=== PATIENT | male | born 1980 | race Caucasian/White ===

== ENCOUNTER 2016-10-26 11:00 | Emergency (ER) | payer OTHER ==
[~2016-10-26] VITALS: Ht 195.6 cm; Wt 95.2 kg
[~2016-10-26 11:00] MED LIST: IPRAT-ALBUT 0.5-3 ML INH; MONTELUKAST SOD10 MG PO; OMEPRAZOLE20 MG PO
[2016-10-26] MEDS ORDERED: NORCO 5-325 TA1 EACH PO (13:09)
== END 2016-10-26 11:21 | disposition home or self-care (01) ==
LOC: ED 11:00
DX: Z00.8 Encounter for other general examination (principal)

== ENCOUNTER 2016-10-26 12:06 | Emergency (ER) | payer OTHER ==
[~2016-10-26] VITALS: Ht 195.6 cm; Wt 95.2 kg
[2016-10-26] MEDS ORDERED: NORCO 5-325 TA1 EACH PO (13:09)
== END 2016-10-26 13:28 | disposition home or self-care (01) ==
LOC: ED 12:06
PROC: 0HQNXZZ Repair Left Foot Skin, External Approach (ICD-10-PCS; principal; 2016-10-26)
DX: S97.82XA Crushing injury of left foot, initial encounter (principal); S91.312A Laceration without foreign body, left foot, initial encounter; W20.8XXA Other cause of strike by thrown, projected or falling object, initial encounter; Y99.0 Civilian activity done for income or pay
CPT/HCPCS: 12001; 73630; 99283

== ENCOUNTER 2020-05-29 14:28 | Emergency (ER) | payer OTHER ==
[~2020-05-29] VITALS: Ht 195.6 cm; Wt 95.2 kg
[~2020-05-29 14:28] MED LIST changes: +NORCO 5-325 TA1 EACH PO
[2020-05-29] MEDS ORDERED: METOPROLOL SUCC25 MG PO (15:08)
[2020-05-29] MEDS ORDERED: OMEPRAZOLE20 MG PO (15:08)
[2020-05-29] MEDS ORDERED: HYDROCODON-ACE1 EA10 PO (16:33)
== END 2020-05-29 16:37 | disposition home or self-care (01) ==
LOC: ED 14:28
DX: S20.212A Contusion of left front wall of thorax, initial encounter (principal); S30.0XXA Contusion of lower back and pelvis, initial encounter; V80.010A Animal-rider injured by fall from or being thrown from horse in noncollision accident, initial encounter; J45.909 Unspecified asthma, uncomplicated; Z79.899 Other long term (current) drug therapy
CPT/HCPCS: 71101; 73502; 80053; 85025; 96374; 96375; 96376; 99283-25; J1170; J1885

== ENCOUNTER 2021-09-08 10:29 | Emergency (ER) | payer OTHER ==
[~2021-09-08] VITALS: Ht 195.6 cm; Wt 101.9 kg
--- NOTE | ~2021-09-08 | EKG ---
[facility] [address] [place], [place] [address] Draft EKG completed, results pending confirmation PATIENT NAME: OLIVASSHANIQUA FLAHERTY Electrocardiogram DATE OF : 80 PHYSICIAN: PRELIMINARY REPORT #: [id number] REPORT IS CONFIDENTIAL AND NOT TO BE RELEASED WITHOUT AUTHORIZATION
[~2021-09-08 10:29] MED LIST changes: +HYDROCODON-ACE1 EA10 PO
[2021-09-08] MEDS ORDERED: METOPROLOL SUCC25 MG PO (10:49)
[2021-09-08] MEDS ORDERED: PREDNISONE20 MG PO (12:41)
== END 2021-09-08 13:38 | disposition home or self-care (01) ==
LOC: ED 10:29
DX: J45.901 Unspecified asthma with (acute) exacerbation (principal); Z79.899 Other long term (current) drug therapy
CPT/HCPCS: 36415; 71045; 80048; 83880; 85025; 85379; 93005; 93010; 94640; 96374; 99285-25; J2930

== ENCOUNTER 2023-09-25 00:53 | Emergency (ER) | payer OTHER ==
[~2023-09-25] VITALS: Ht 195.6 cm; Wt 102.1 kg
[~2023-09-25 00:53] MED LIST changes: +METOPROLOL SUCC25 MG PO; +PREDNISONE20 MG PO
[2023-09-25] MEDS ORDERED: ALBUTEROL/IPRATROPIUM 3 ML NEB INH ONE (01:00)
[2023-09-25] MEDS ORDERED: VENTOLIN HFA18 GM INH (01:06)
[2023-09-25] MEDS ORDERED: IPRAT-ALBUT 0.5-3 ML INH (01:06)
[2023-09-25 01:30] LABS: BASOPHILS 1.2 % (0-2); HEMATOCRIT 41.1 % (35.0-50.0); LYMPHOCYTES 34.7 % (24-44); MCH 29.8 (27-36); MCV 87.7 fl (81-99); MONOCYTES 10.2 % (0-12); NEUTROPHILS 44.9 % (39-80); PLATELET COUNT 217 K/uL (140-440); RBC 4.69 M/ul (4.3-5.7)
[2023-09-25] MEDS ORDERED: methylPREDNISolone SOD SUCC 125 MG/2 ML VIAL IV ONE (01:30)
[2023-09-25] MEDS ORDERED: FLUTICASONE PRO12 GM INH (01:37)
[2023-09-25 01:51] LABS: ALBUMIN 3.6 g/dL (3.4-5.0); ALBUMIN/GLOBULIN RATIO 1.2 (1.1-2.4); ANION GAP 13.6 (7-21); BILIRUBIN, TOTAL 0.3 ng/dL (0.2-1.0); BUN/CREATININE RATIO 16.12 (6.0-28.6); CALCIUM 8.5 mg/dL (8.5-10.1); CREATININE, SERUM 0.93 mg/dL (0.70-1.30); POTASSIUM 3.6 mmol/L (3.5-5.1); PROTEIN, TOTAL 6.6 g/dL (6.4-8.2)
[2023-09-25 02:27] VITALS: BP 121/84
--- NOTE | 2023-09-25 12:58 | EKG ---
[facility] [address] [facility] [place] [address] Signed Normal sinus rhythm Normal ECG When compared with ECG of 08-SEP-2021 11:07, No significant change was found Confirmed by cT Alonso ([id number]) on 09/25/2023 12:58:27 PM Electronically Signed By: TC ALONSO MD 09/25/23 1258 PATIENT NAME: SHANIQUA OLIVAS Electrocardiogram DATE OF : 80 PHYSICIAN: TC ALONSO MD REPORT #: [id number] REPORT IS CONFIDENTIAL AND NOT TO BE RELEASED WITHOUT AUTHORIZATION
== END 2023-09-25 02:28 | disposition home or self-care (01) ==
LOC: ED 00:53
PROVIDERS: Internal Medicine
DX: J45.901 Unspecified asthma with (acute) exacerbation (principal); Z79.899 Other long term (current) drug therapy
CPT/HCPCS: 36415; 71045; 80053; 83735; 83880; 85025; 93005; 93010; 94640; 96374; 99285-25; J2919

== ENCOUNTER 2024-06-17 08:04 | Observation (INO) | payer OTHER ==
[~2024-06-17] VITALS: Ht 195.6 cm; Wt 102.3 kg
[~2024-06-17 08:04] MED LIST changes: +FLUTICASONE PRO12 GM INH; +VENTOLIN HFA18 GM INH
[2024-06-17 08:30] LABS: BASOPHILS 0.8 % (0-2); EOSINOPHILS 2.7 % (0-6); HEMATOCRIT 46.2 % (35.0-50.0); HEMOGLOBIN 15.8 g/dL (12.0-18.0); LYMPHOCYTES 42.6 % (24-44); MCH 29.2 (27-36); MCHC 34.3 g/dl (30-36); MCV 85.1 fl (81-99); MONOCYTES 6.7 % (0-12); NEUTROPHILS 47.2 % (39-80); PLATELET COUNT 309 K/uL (140-440); RBC 5.43 M/ul (4.3-5.7); RDW 13.9 (10.5-15.0)
[2024-06-17 08:41] LABS: ALBUMIN/GLOBULIN RATIO 1.14 (1.1-2.4); ANION GAP 9.8 (7-21); BILIRUBIN, TOTAL 0.5 mg/dL (0.2-1.0); BUN/CREATININE RATIO 12.82 (6.0-28.6); CALCIUM 8.3 mg/dL (8.5-10.1); CREATININE, SERUM 1.17 mg/dL (0.70-1.30); MAGNESIUM 2.1 mg/dL (1.8-2.4); POTASSIUM 3.8 mmol/L (3.5-5.1); PROTEIN, TOTAL 7.5 g/dL (6.4-8.2)
[2024-06-17] MEDS ORDERED: ondansetron HCL 4 MG/2 ML VIAL IV ONE ×2 (08:45→10:00)
[2024-06-17] MEDS ORDERED: HYDROmorphone HCL 1 MG/ML SYR IV ONE ×2 (08:45→10:00)
[2024-06-17] MEDS ORDERED: fentaNYL citrate 100 MCG/2 ML VIAL IV PRN ×2 (08:45→10:30)
--- NOTE | 2024-06-17 11:44 | EKG ---
[facility] [address] [facility] [place] [address] Signed Normal sinus rhythm Normal ECG When compared with ECG of 25-SEP-2023 01:17, No significant change was found Confirmed by Loc Berry DO ([id number]) on 06/17/2024 11:44:38 AM Electronically Signed By: LOC BERRY DO 06/17/24 1144 PATIENT NAME: SHANIQUA OLIVAS RENETTA Electrocardiogram DATE OF : 80 PHYSICIAN: LOC BERRY DO REPORT #: [id number] REPORT IS CONFIDENTIAL AND NOT TO BE RELEASED WITHOUT AUTHORIZATION
[2024-06-17] MEDS ORDERED: ondansetron HCL 4 MG/2 ML VIAL IV PRN (11:45)
[2024-06-17] MEDS ORDERED: ACETAMINOPHEN 325 MG TAB PO PRN (11:45)
[2024-06-17] MEDS ORDERED: LACTATED RINGER'S 1,000 ML IV SCH (11:45)
[2024-06-17] MEDS ORDERED: PHARMACY RENAL DOSE ADJUSTMENT 1 DOSE MISC PO SCH (12:00)
[2024-06-17] MEDS ORDERED: HYDROmorphone HCL 1 MG/ML SYR IV PRN (12:45)
[2024-06-17] MEDS ORDERED: MONTELUKAST SOD10 MG PO (13:13)
--- NOTE | 2024-06-17 13:14 | NUR ---
UR CLINICAL REVIEW: [facility] REVIEW MEET OBS FOR [facility] WITH NEED TO MONITOR [facility] 06/17/24 @ 1142 ORDER MATCHES REG NO AUTH REQUIRED PER [facility] GUIDELINES. RECORD FAXED PER [facility] REQUEST ANTICIPATE DC IN 24 HRS PENDING WORK UP 06/18/24
[2024-06-17 13:18] VITALS: BP 120/80
--- NOTE | 2024-06-17 13:41 | NUR ---
Patient to the medical floor. Patient alert and oriented x3, no acute distress. Patient has a sling to right shoulder in place, cms intact to RUE. Patient reports 3/10 right arm pain. Patient's vital signs are stable. Patient able to stand and transfer to unit bed, pt denies feeling dizzy with movement. Patient's at bedside. Oriented patient to room and call light. US to room for study at this time.
[2024-06-17] MEDS ORDERED: ASMANEX220 MC1 INH (14:45)
[2024-06-17] MEDS ORDERED: OMEPRAZOLE20 MG PO (14:45)
--- NOTE | 2024-06-17 14:55 | NUR ---
PATIENT GIVEN 1MG OF IV DILAUDID FOR 8/10 RIGHT SHOULDER PAIN. PATIENT ALSO GIVEN 650MG OF PO TYLENOL. NO OTHER NEEDS AT THIS TIME.
[2024-06-17] MEDS ORDERED: DESONIDE15 GM TOP (15:42)
[2024-06-17] MEDS ORDERED: TERBINAFINE15 G1 TOP (15:43)
[2024-06-17] MEDS ORDERED: FLUTICASONE PRO16 GM NAS (15:44)
--- NOTE | 2024-06-17 15:44 | NUR ---
MED REC COMPLETE
--- NOTE | 2024-06-17 16:17 | NUR ---
Patient in bed resting, eyes closed, respirations even/non labored. Call light within reach.
--- NOTE | 2024-06-17 16:42 | NUR ---
Patient in bed resting, easily wakes to verbal stimuli. Sling intact, pt tolerating well. Patient reports tolerable pain at this time. IV patent. Family at bedside. Personal supplies and call light within reach.
--- NOTE | 2024-06-17 17:49 | NUR ---
Patient found vomiting in bed. Patient reports he ate fries. Zofran 4mg iv admin at this time. Patient reports he is still hungry and is going to continue to try to eat. This RN attempted to encourage him to take a break from eating, pt reports he will "go slow". and other family members at bedside.
[2024-06-17 18:35] VITALS: BP 124/72
--- NOTE | 2024-06-17 19:32 | NUR ---
RECEIVED REPORT FROM SHERLYN MORIN. PT AWAKE, DENIES NEEDS OR CONCERNS AT THIS TIME. PT REMINDED OF NEED FOR URINE SAMPLE-PT UNDERSTANDS. CALL LIGHT WITHIN REACH.
--- NOTE | 2024-06-17 20:15 | NUR ---
PT AWAKE, WATCHING TV. VSS. PLEASANT AND COOPERATIVE. REPORTS RIGHT SHOULDER AND MID BACK PAIN 08/14. MEDICATED W/ PRN IV DILAUDID. PT ALSO GIVEN PRN MELATONIN. LSC. HRR. REPORTS SOME INTERMITTENT ONGOING PALPITATIONS. TELEMTRY IN PLACE. BTA, LBM YESTERDAY. VOIDS WNL. LAC IV INFUSING LR @ 100MLS/HR. RUE W/ SLING IN PLACE, ELEVATED ON PILLOWS. CMS INTACT. CALL LIGHT WITHIN REACH.
[2024-06-17 20:22] VITALS: BP 124/80
--- NOTE | 2024-06-17 20:31 | NUR ---
PATIENT CALLED TO USE THE RESTROOM. SBA. PATIENT URINATED 350ML TEA COLORED URINE. SAMPLE COLLECTED AND SENT TO THE LABORATORY.
[2024-06-17 20:38] VITALS: BP 124/80
[2024-06-17 20:47] LABS: AMPHETAMINES, URINE NEGATIVE (NEGATIVE); BARBITURATES, URINE NEGATIVE (NEGATIVE); BENZODIAZEPINE, URINE NEGATIVE (NEGATIVE); BUPRENORPHINE, URINE NEGATIVE (NEGATIVE); CANNABINOID, URINE NEGATIVE (NEGATIVE); COCAINE, URINE NEGATIVE (NEGATIVE); ECSTASY, URINE NEGATIVE (NEGATIVE); FENTANYL, URINE POSITIVE (NEGATIVE); METHADONE, URINE NEGATIVE (NEGATIVE); OPIATES, URINE POSITIVE (NEGATIVE); OXYCODONE, URINE NEGATIVE (NEGATIVE); PHENCYCLIDINE, URINE NEGATIVE (NEGATIVE)
[2024-06-17] MEDS ORDERED: MELATONIN 3 MG TAB PO PRN (21:00)
--- NOTE | 2024-06-17 22:00 | NUR ---
PT AWAKENED BY BEEPING IV. REPORTS SLEEPING WELL BETWEEN CARE.
--- NOTE | 2024-06-17 22:36 | NUR ---
DR. BERRY CONTACTED REGARDING PAIN MEDS. RECEIVED ORDER TO D/C IV DILAUDID AND START PRN PO OXYCODONE.
[2024-06-17] MEDS ORDERED: OXYCODONE HCL 5 MG TAB PO PRN (22:45)
--- NOTE | 2024-06-17 23:47 | NUR ---
PT AWAKENED BY BEEPING IV, OTHERWISE SLEEPING BETWEEN CARES. NEW BAG IVF HUNG. LAC IV SITE WNL.
[2024-06-18 02:00] VITALS: BP 109/59
--- NOTE | 2024-06-18 02:22 | NUR ---
PT REPORTS RIGHT SHOULDER PAIN 08/14. MEDICATED W/ 5MG PO OXYCODONE PER EMAR.
[2024-06-18 02:23] VITALS: BP 109/59
--- NOTE | 2024-06-18 05:18 | NUR ---
PT AWAKE FOR LAB DRAW. SLEEPING BETWEEN CARE. ASSISTED TO REPOSITION RUE. SLING IN PLACE. CMS INTACT.
[2024-06-18 05:21] LABS: BASOPHILS 0.4 % (0-2); EOSINOPHILS 0.5 % (0-6); HEMATOCRIT 39.6 % (35.0-50.0); HEMOGLOBIN 13.9 g/dL (12.0-18.0); LYMPHOCYTES 18.2 % (24-44); MCH 29.8 (27-36); MCV 85.3 fl (81-99); NEUTROPHILS 71.9 % (39-80); PLATELET COUNT 223 K/uL (140-440); RBC 4.65 M/ul (4.3-5.7); RDW 13.9 (10.5-15.0)
[2024-06-18 05:36] LABS: ALBUMIN 3.2 g/dL (3.4-5.0); ALBUMIN/GLOBULIN RATIO 1.07 (1.1-2.4); ANION GAP 11.9 (7-21); BILIRUBIN, TOTAL 0.7 mg/dL (0.2-1.0); BUN/CREATININE RATIO 15.46 (6.0-28.6); CREATININE, SERUM 0.97 mg/dL (0.70-1.30); MAGNESIUM 1.8 mg/dL (1.8-2.4); POTASSIUM 3.9 mmol/L (3.5-5.1); PROTEIN, TOTAL 6.2 g/dL (6.4-8.2)
[2024-06-18 06:16] VITALS: BP 109/59
--- NOTE | 2024-06-18 06:21 | NUR ---
PATIENT UP TO USE THE RESTROOM AND VOIDED UNMEASURED. PATIENT IS BACK IN BED. NO OTHER NEEDS AT THIS TIME.
--- NOTE | 2024-06-18 07:59 | NUR ---
HOURLY ROUNDING. PATIENT SLEEPING AT THIS TIME. BOARD HAS BEEN UPDATED AND CALL LIGHT HAS BEEN PLACED WITHIN REACH
--- NOTE | 2024-06-18 08:01 | NUR ---
Patient awake in bed watching tv, no acute distress. RUE in sling, cms intact. Patient reporting 6/10 right shoulder pain. Admin tylenol 650mg po and oxycodone 10mg po at this time. Patient denies further needs. Call light within reach.
[2024-06-18 09:31] VITALS: BP 114/66
--- NOTE | 2024-06-18 09:55 | NUR ---
UR CONCURRENT REVIEW: [facility]-DOES NOT MEET OBS DC CRITERIA. AWAITING ECHO RESULTS [facility] OBS 06/17/24 @ 0806 ORDER MATCHES REG [facility] FOR [facility]. NO AUTH REQUIRED ANTICIPATE DC TODAY PENDING ECHO RESULTS
[2024-06-18 10:00] VITALS: BP 114/66
--- NOTE | 2024-06-18 10:40 | NUR ---
Spoke with Fran. He lives with his and kids. Has a seizure disorder and fell during a seizure and dislocated and fx his shoulder. He denies needs. Plans on dc to home today with family. Dad and daughter in the room. NOfinancial concerns or safety concerns. Pt lives in a home with 4 steps, states he has no issues getting in or out of the home. Pt is active and does not use any DME. Home today.
--- NOTE | 2024-06-18 10:55 | NUR ---
VISITED DURING SPIRITUAL CARE ROUNDS. PT SUPPORTED BY FAMILY IN ROOM. ALL IN OVERALL GOOD SPIRITS, NO IMMEDIATE NEEDS. APNS PROVIDED SUPPORTIVE PRESENCE, HOSPITALITY, PRAYER, FACILITATED INTERACTION WITH THERAPY ANIMAL. PT AND FAMILY EXPRESSED GRATITUDE.
--- NOTE | 2024-06-18 11:29 | NUR ---
Patient in bed watching tv, no acute distress. RUE sling in place, cms remains intact. Family at bedside visiting.
[2024-06-18] MEDS ORDERED: HYDROCODON-ACE1 EA10 PO (12:35)
[2024-06-18] MEDS ORDERED: ASPERCREME1 EACH TD (12:36)
== END 2024-06-18 13:10 | disposition home or self-care (01) ==
LOC: ED 08:04 → MS 08:06
PROVIDERS: Emergency Medicine; ADMIT Student in an Organized Health Care Education/Training Program; ATTEND Student in an Organized Health Care Education/Training Program
DX: R55 Syncope and collapse (principal); S42.131A Displaced fracture of coracoid process, right shoulder, initial encounter for closed fracture; I42.0 Dilated cardiomyopathy; M54.9 Dorsalgia, unspecified; S43.014A Anterior dislocation of right humerus, initial encounter; S43.431A Superior glenoid labrum lesion of right shoulder, initial encounter; J45.909 Unspecified asthma, uncomplicated; Z79.899 Other long term (current) drug therapy; W18.30XA Fall on same level, unspecified, initial encounter
CPT/HCPCS: 23650; 36415; 70450; 71250; 72125; 73030; 73060; 74176; 80053; 80307; 83735; 84484; 85025; 93005; 93010; 93306; 96376; 97161; 99285-25; A9270; G0378; G0480; J1171; J2405; J3010; J7121

== ENCOUNTER 2024-10-08 14:18 | Emergency (ER) | payer OTHER ==
[~2024-10-08] VITALS: Ht 195.6 cm; Wt 102.3 kg
[~2024-10-08 14:18] MED LIST changes: +ASMANEX220 MC1 INH; +ASPERCREME1 EACH TD; +DESONIDE15 GM TOP; +FLUTICASONE PRO16 GM NAS; +TERBINAFINE15 G1 TOP
[2024-10-08 14:32] LABS: BASOPHILS 0.6 % (0.2-1.2); EOSINOPHILS 2.2 % (0.8-7.0); LYMPHOCYTES 34.9 % (21.8-53.1); MCH 29.0 PG (25.7-32.2); MCHC 33.8 g/dL (32.3-36.5); MCV 85.8 fL (79.0-92.2); MONOCYTES 7.3 % (5.3-12.2); NEUTROPHILS 51.1 % (34.0-67.9); RBC 5.00 M/uL (4.63-6.08)
[2024-10-08 14:53] LABS: ALCOHOL, MEDICAL <3 ng/dL (<3); ALT (SGPT) 23 U/L (14-59); AST (SGOT) 22 U/L (15-37); GLOMERULAR FILTRATION RATE,EST 89 mL/min (>60); PROTEIN, TOTAL 7.0 g/dL (6.4-8.2); UREA NITROGEN 14 mg/dL (7-18)
[2024-10-08] MEDS ORDERED: HYDROmorphone HCL 1 MG/ML SYR IV ONE ×2 (15:00→15:45)
--- NOTE | 2024-10-08 16:01 | EKG ---
[facility] [address] [facility] [address] [place] [address] Signed Normal sinus rhythm Normal ECG When compared with ECG of 17-JUN-2024 08:09, No significant change was found Confirmed by AMI OVALLES MD ([id number]) on 10/08/2024 4:01:14 PM Electronically Signed By: AMI OVALLES 10/08/24 1601 PATIENT NAME: SHANIQUA OLIVAS RENETTA Electrocardiogram DATE OF : 80 PHYSICIAN: AMI OVALLES REPORT #: [id number] REPORT IS CONFIDENTIAL AND NOT TO BE RELEASED WITHOUT AUTHORIZATION
[2024-10-08] MEDS ORDERED: LIDOCAINE HCL 4% 1 EACH PATCH TD ONE (19:00)
[2024-10-08] MEDS ORDERED: HYDROCODON-ACE1 EA10 PO ×2 (19:01→21:33)
[2024-10-08] MEDS ORDERED: HYDROCODONE BIT/ACETAMINOPHEN 5/325 MG 1 TAB HOME.PACK PO ONE (19:15)
[2024-10-08] MEDS ORDERED: ONDANSETRON 4 MG HOME.PACK SL ONE (19:15)
[2024-10-08] MEDS ORDERED: LIDOCAINE PATCH REMOVAL 1 EA TD SCH (21:00)
[2024-10-08 21:45] VITALS: BP 122/88
== END 2024-10-08 21:45 | disposition home or self-care (01) ==
LOC: ED 14:18
PROVIDERS: Emergency Medicine
DX: R55 Syncope and collapse (principal); I47.10 Supraventricular tachycardia, unspecified; S23.171A Dislocation of T12/L1 thoracic vertebra, initial encounter; S43.015A Anterior dislocation of left humerus, initial encounter; W07.XXXA Fall from chair, initial encounter; J45.909 Unspecified asthma, uncomplicated; Z79.899 Other long term (current) drug therapy
CPT/HCPCS: 23650; 36415; 71045; 72100; 73030; 80053; 80307; 84484; 85025; 93005; 93010; 96374; 96375; 96376; 99152; 99284-25; A9270; G0480; J1171; J2405; J2704

== ENCOUNTER 2024-11-17 12:10 | Emergency (ER) | payer OTHER ==
[~2024-11-17] VITALS: Ht 195.6 cm; Wt 102.3 kg
--- OUTSIDE RECORDS SUMMARY | ~2024-11-17 | XMS | Continuity of Care Document ---
Demographics + + + | Address | [address] | | | [place] [address] | + + + | Preferred Language | Unknown | + + + | Marital Status | | + + + | Congregational Affiliation | Unknown | + + + | Race | White | + + + | Ethnic Group | Not or | + + + Author + + + | Author | [facility] | + + + | Organization | [facility] | + + + | Address | [address] | | | [place] [address] | + + + | Phone | | + + + Care Team Providers + + + + | Care Jacquard Card Lacer Name | Role | Phone | + + + + Unavailable | Unavailable | + + + + Allergies No information. Encounters No information. Functional Status No information. Immunizations No information. Medications + + + + | date | description | facility | + + + + | (no date) | IPRATROPIUM/ALBUTEROL | [facility] | | | SULFATE | [facility] | + + + + | (no date) | FLUTICASONE PROPIONATE 50 | [facility] | | | MCG | [facility] | + + + + | (no date) | OMEPRAZOLE | [facility] | | | | [facility] | + + + + | (no date) | MONTELUKAST SODIUM | [facility] | | | | [facility] | + + + + | (no date) | DESONIDE | [facility] | | | | [facility] | + + + + | (no date) | MOMETASONE FUROATE | [facility] | | | | [facility] | + + + + | (no date) | ALBUTEROL SULFATE | [facility] | | | | [facility] | + + + + | (no date) | METOPROLOL SUCCINATE | [facility] | | | | [facility] | + + + + | (no date) | Terbinafine HCl | [facility] | | | | [facility] | + + + + Problems No information. Procedures No information. Results/Labs No information. Social History +--------+ + + | date | description | facility | +--------+ + + Vital Signs No information."
[2024-11-17 12:31] LABS: BASOPHILS 0.7 % (0.2-1.2); EOSINOPHILS 3.3 % (0.8-7.0); LYMPHOCYTES 38.4 % (21.8-53.1); MCH 29.4 PG (25.7-32.2); MCHC 34.3 g/dL (32.3-36.5); MCV 85.7 fL (79.0-92.2); MONOCYTES 8.1 % (5.3-12.2); NEUTROPHILS 48.7 % (34.0-67.9); RBC 4.83 M/uL (4.63-6.08)
[2024-11-17 12:48] LABS: ALT (SGPT) 18.0 U/L (14-59); AST (SGOT) 26.0 U/L (15-37); GLOMERULAR FILTRATION RATE,EST 108.0 mL/min (>60); UREA NITROGEN 15.0 mg/dL (7-18)
[2024-11-17 13:01] LABS: PROTEIN, TOTAL 7.2 g/dL (6.4-8.2)
[2024-11-17] MEDS ORDERED: ONDANSETRON 4 MG TAB ODT SL ONE (14:45)
[2024-11-17] MEDS ORDERED: OXYCODONE HCL 5 MG TAB PO ONE (14:45)
[2024-11-17] MEDS ORDERED: HYDROCODON-ACE1 EA10 PO (16:14)
[2024-11-17] MEDS ORDERED: CYCLOBENZAPRINE10 MG PO (16:14)
[2024-11-17] MEDS ORDERED: LORazepam 1 MG TAB PO ONE (16:45)
[2024-11-17 18:04] VITALS: BP 122/84
== END 2024-11-17 18:04 | disposition home or self-care (01) ==
LOC: ED 12:10
PROVIDERS: Emergency Medicine
DX: R56.9 Unspecified convulsions (principal); J45.909 Unspecified asthma, uncomplicated; Z79.51 Long term (current) use of inhaled steroids; Z79.899 Other long term (current) drug therapy
CPT/HCPCS: 36415; 70450; 72100; 80053; 85025; 99284-25; A9270; A9270-GY

== ENCOUNTER 2025-01-10 16:26 | Emergency (ER) | payer OTHER ==
[~2025-01-10] VITALS: Ht 195.6 cm; Wt 104.0 kg
--- OUTSIDE RECORDS SUMMARY | ~2025-01-10 | XMS | Continuity of Care Document ---
Demographics + + + | Address | [address] | | | [place] [address] | + + + | Preferred Language | Unknown | + + + | Marital Status | | + + + | Synagogue Affiliation | Unknown | + + + | Race | White | + + + | Ethnic Group | Not or | + + + Author + + + | Author | [facility] | + + + | Organization | [facility] | + + + | Address | [address] | | | [place] [address] | + + + | Phone | | + + + Care Team Providers + + + + | Care Telegraph Repeater Installer Name | Role | Phone | + + + + Unavailable | Unavailable | + + + + Unavailable | Unavailable | + + + + Allergies and Intolerances + + + + + + | date | description | facility | reaction | severity | + + + + + + | 2024-11-17 | UNK | [facility] | (no reaction) | (no severity) | | 00:00 | | [facility] | | | + + + + + + Encounters No information. Functional Status No information. Immunizations No information. Medications + + + + | date | description | facility | + + + + | (no date) | IPRATROPIUM/ALBUTEROL | [facility] | | | SULFATE | [facility] | + + + + | (no date) | FLUTICASONE PROPIONATE 50 | [facility] | | | MCG | [facility] | + + + + | (no date) | OMEPRAZOLE | [facility] | | | | [facility] | + + + + | (no date) | MONTELUKAST SODIUM | [facility] | | | | [facility] | + + + + | (no date) | DESONIDE | [facility] | | | | [facility] | + + + + | (no date) | MOMETASONE FUROATE | [facility] | | | | [facility] | + + + + | 2024-11-17 00:00 | CYCLOBENZAPRINE HCL | [facility] | | | | [facility] | + + + + | 2024-11-17 00:00 | HYDROCODONE | [facility] | | | BIT/ACETAMINOPHEN | [facility] | + + + + | (no date) | ALBUTEROL SULFATE | [facility] | | | | [facility] | + + + + | (no date) | METOPROLOL SUCCINATE | [facility] | | | | [facility] | + + + + | (no date) | Terbinafine HCl | [facility] | | | | [facility] | + + + + Problems + + + + | date | description | facility | + + + + | 2024-11-17 00:00 | Seizure | [facility] | | | | [facility] | + + + + Procedures No information. Results/Labs No information. Social History +--------+ + + | date | description | facility | +--------+ + + Vital Signs No information."
[~2025-01-10 16:26] MED LIST changes: +CYCLOBENZAPRINE10 MG PO
[2025-01-10] MEDS ORDERED: KETOROLAC TROMETHAMINE 15 MG/ML VIAL IV ONE (17:15)
[2025-01-10 17:27] LABS: BLOOD/HGB, URINE NEGATIVE (Negative); KETONE, URINE NEGATIVE (Negative); LEUK ESTERASE, URINE NEGATIVE (negative); NITRITE, URINE NEGATIVE (negative)
[2025-01-10 17:28] LABS: BASOPHILS 0.7 % (0.2-1.2); EOSINOPHILS 0.6 % (0.8-7.0); LYMPHOCYTES 16.6 % (21.8-53.1); MCH 29.4 PG (25.7-32.2); MCHC 34.0 g/dL (32.3-36.5); MCV 86.4 fL (79.0-92.2); MONOCYTES 7.8 % (5.3-12.2); NEUTROPHILS 73.9 % (34.0-67.9); RBC 4.93 M/uL (4.63-6.08)
[2025-01-10 17:55] LABS: ALT (SGPT) 23.0 U/L (14-59); AST (SGOT) 21.0 U/L (15-37); GLOMERULAR FILTRATION RATE,EST 112.0 mL/min (>60); PROTEIN, TOTAL 8.0 g/dL (6.4-8.2); UREA NITROGEN 14.0 mg/dL (7-18)
[2025-01-10] MEDS ORDERED: HYDROCODONE BIT/ACETAMINOPHEN 5/325 MG 1 TAB HOME.PACK PO ONE (20:45)
[2025-01-10 20:55] VITALS: BP 131/82
== END 2025-01-10 21:06 | disposition home or self-care (01) ==
LOC: ED 16:26
PROVIDERS: Emergency Medicine
DX: S32.019G Unspecified fracture of first lumbar vertebra, subsequent encounter for fracture with delayed healing (principal); J45.909 Unspecified asthma, uncomplicated; W19.XXXD Unspecified fall, subsequent encounter
CPT/HCPCS: 36415; 72131; 74177; 80053; 81003; 85025; 96374; 96375; 99284-25; A9270; J1885; J2405; Q9967